=== PATIENT | male | born 1955 | race Caucasian/White ===

== ENCOUNTER → 2025-01-12 | Outpatient (CLI) | payer MEDICARE ==
[2025-01-12 11:13] LABS: African American GFR (CKD) 78 (>60 ml/min/1.73 sqM); Anion Gap 11 mmol/L; Blood Urea Nitrogen 35 mg/dL (9-20); Calcium 9.5 mg/dL (8.4-10.2); Carbon Dioxide 27 mmol/L (22-30); Chloride 100 mmol/L (98-107); Glucose 87 mg/dL (74-99); Non-African American GFR(CKD) 68 (>60 ml/min/1.73 sqM); Potassium 4.4 mmol/L (3.5-5.1); Sodium 138 mmol/L (137-145)
--- NOTE | 2025-01-12 14:47 | CT ---
EXAMINATION TYPE: CT angio chest CT DLP: 1658.9 mGycm, Automated exposure control for dose reduction was used. 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 Hx of valve replacement. TECHNIQUE/CONTRAST: CTA scan of the thorax is performed without and with IV Contrast, patient injected with 100 ml mL of Isovue 370. 3D reconstructed images are created on an independent workstation and reviewed.. FINDINGS: Lungs/Pleura: No evidence of focal consolidation, pleural effusion or pneumothorax. Stable right midl berny calcified granuloma. Airway: Large airways are patent. Heart: Moderately enlarged.No pericardial effusion No significant coronary artery calcifications. Aor tic valvular calcifications. Post surgical changes of the pulmonary valve redemonstrated. Left anter ior chest wall cardiac pacemaker device with leads terminating in the right atrium, right ventricle, and coronary ostium. Vasculature: Conventional three-vessel aortic arch. Similar aortic root aneurysmal dilatation measuri ng up to 4.9 cm. The aneurysm is fusiform dilatation of the ascending thoracic aorta measuring up to 4.7 cm. The descending thoracic aorta measures up to 2.9 cm. Minimal atherosclerotic calcification of the aorta and its branches. No evidence for intramural hematoma or dissection. Similar dilated main pulmonary artery measuring up to 4.5 cm. This suggests pulmonary arterial hypertension. Mediastinum: No gross evidence of adenopathy. Right hilar calcified granulomas. Musculoskeletal: No acute osseous abnormalities. Postsurgical changes from sternotomy with some dehis cence again of the inferior aspect. Right AC joint arthropathy. Multilevel degenerative disc disease. S-shaped scoliotic curvature of the visualized spine. Soft Tissues: Unremarkable. Lower neck: No significant findings. Upper Abdomen: Cholelithiasis. Partial visualization of left renal cyst measuring 4.6 cm.. IMPRESSION: Stable aneurysmal dilatation of the aortic root and ascending thoracic aorta. No evidence for intracr anial hematoma or dissection. [facility], , 01/12/2025 2:44 PM
== END | disposition home or self-care (01) ==
LOC: RADCTMAIN 10:23
PROVIDERS: ATTEND Family Medicine
DX: I71.21 Aneurysm of the ascending aorta, without rupture (principal); I10 Essential (primary) hypertension
CPT/HCPCS: 80048; 71275; 36415; Q9967